=== PATIENT | female | born 2000 | race African-American/Black ===

== ENCOUNTER 2024-10-22 20:30 | Emergency (ER) | payer SELFPAY ==
[~2024-10-22] VITALS: Ht 162.6 cm; Wt 70.5 kg
[2024-10-22 21:03] VITALS: BP 104/70; PULSE 78; RESP 16; TEMP 98.2; O2SAT 100
[2024-10-22] MEDS: LIDOCAINE 5% TRANSDERMAL PATCH TD ONE (23:03)
[2024-10-23] MEDS ORDERED: CYCL-448 PO (00:08)
== END 2024-10-23 01:40 | disposition home or self-care (01) ==
LOC: EMS 20:34
DX: M54.50 Low back pain, unspecified (principal); M25.511 Pain in right shoulder; K21.9 Gastro-esophageal reflux disease without esophagitis; F12.90 Cannabis use, unspecified, uncomplicated
CPT/HCPCS: 29105; 72072; 72100; 99284; 73030-TC; Z7502; Z7610

== ENCOUNTER 2025-01-28 18:21 | Emergency (ER) | payer SELFPAY ==
[~2025-01-28] VITALS: Ht 162.6 cm; Wt 63.6 kg
[~2025-01-28 18:21] MED LIST: CYCL-448 PO
[2025-01-28 18:27] VITALS: TEMP 98.1
[2025-01-28 18:43] LABS: COVID AG,FIA SOURCE NASAL SWAB
[2025-01-28 19:01] LABS: PLATELET COUNT (AUTO) 110 K/uL (150-450); RED BLOOD CELL COUNT(AUTO) 5.08 MIL/uL (4.00-5.20); RED CELL DISTRIBUTION WIDTH 15.6 % (11.5-14.5); WHITE BLOOD COUNT (AUTO) 1.5 K/uL (4.5-11.0)
[2025-01-28 19:09] LABS: CALCIUM, TOTAL 9.0 mg/dL (8.8-10.5); CREATININE 0.97 mg/dL (0.60-1.30); GLOMERULAR FILTR. RATE CALC > 60 mL/min (>60); GLUCOSE,RANDOM 102 mg/dL (70-110); SODIUM SERUM 136 mmol/L (136-145); UREA NITROGEN, BLOOD 6 mg/dL (7-18)
[2025-01-28 19:10] LABS: INFLUENZA TYPE A NEGATIVE FOR TYPE A (NEGATIVE); INFLUENZA TYPE B NEGATIVE FOR TYPE B (NEGATIVE); SARS-COV2 (COVID) ANTIGEN,FIA Negative (Negative)
[2025-01-28 19:11] LABS: RAPID GROUP A STREP PRELIM. NEGATIVE (NEGATIVE)
[2025-01-28 19:21] LABS: BAND NEUTROPHILS % (MANUAL) 0 % (0-5)
[2025-01-28 19:23] LABS: LYMPHOCYTES % (MANUAL) 47 % (22-44); MONOCYTES % (MANUAL) 15 % (2-9); RBC MORPHOLOGY COMMENT NORMAL RBC MORPH; SEGMENTED NEUTROPHILS % 38 % (40-70)
[2025-01-28 20:47] LABS: APPEARANCE,URINE CLEAR (CLEAR); GLUCOSE, URINE (UA) NEGATIVE (NEGATIVE); LEUKOCYTE ESTERASE ,URINE NEGATIVE (NEGATIVE); NITRATE,URINE NEGATIVE (NEGATIVE); OCCULT BLOOD,URINE NEGATIVE (NEGATIVE); SPECIFIC GRAVITIY, URINE 1.026 (1.003-1.030)
[2025-01-28 20:52] LABS: PLATELET COUNT (AUTO) 89 K/uL (150-450); RED BLOOD CELL COUNT(AUTO) 4.87 MIL/uL (4.00-5.20); RED CELL DISTRIBUTION WIDTH 15.6 % (11.5-14.5); WHITE BLOOD COUNT (AUTO) 1.8 K/uL (4.5-11.0)
[2025-01-28 21:16] LABS: BAND NEUTROPHILS % (MANUAL) 0 % (0-5)
[2025-01-28 21:18] LABS: LYMPHOCYTES % (MANUAL) 56 % (22-44); MONOCYTES % (MANUAL) 12 % (2-9); PLATELET MORPHOLOGY COMMENT LARGE PLTS PRESENT; RBC MORPHOLOGY COMMENT NORMAL RBC MORPH; SEGMENTED NEUTROPHILS % 32 % (40-70)
[2025-01-28] MEDS: LIDOCAINE/PF 1% 2 ML VIAL IM ONE (21:34)
[2025-01-28] MEDS: CefTRIAXone SODIUM 1 GM/VIAL IM ONE (21:34)
[2025-01-28] MEDS: AZITHROMYCIN 500 MG TABLET PO ONE (21:34)
[2025-01-28 22:00] VITALS: BP 112/81; PULSE 102; RESP 18; O2SAT 98
== END 2025-01-28 22:22 | disposition home or self-care (01) ==
LOC: EMS 18:21
DX: J18.0 Bronchopneumonia, unspecified organism (principal); A64 Unspecified sexually transmitted disease; F12.90 Cannabis use, unspecified, uncomplicated; K21.9 Gastro-esophageal reflux disease without esophagitis; Z79.899 Other long term (current) drug therapy; Z20.822 Contact with and (suspected) exposure to COVID-19
CPT/HCPCS: 99284; 71045; 87426; 80048; 81003; 84703; 85025; 87081; 87430; 87804; 36415; 87491; 87591; 96372; J0456; J0696; J3490